=== PATIENT | male | born 1990 | race American Indian/Alaskan Native ===

== ENCOUNTER 2019-01-11 09:21 | Observation (INO) | payer OTHER ==
[2019-01-11 10:20] LABS: Hematocrit TNR % (35.5-45.6); Hemoglobin TNR gm/dl (11.8-15.2); Lymphocytes % (Auto) TNR % (13.4-35.0); Mean Corpuscular HGB Conc TNR % (32-34); Mean Corpuscular Volume TNR fl (84-94); Monocytes % (Auto) TNR % (0.0-7.3); Platelet Count TNR K/mm3 (140-440); Red Blood Count TNR M/mm3 (3.65-5.03); Red Cell Distribution Width TNR % (13.2-15.2)
[2019-01-11] MEDS ORDERED: HALDOL ONE (10:20)
[2019-01-11 10:21] LABS: Basophils # (Auto) TNR K/mm3 (0.0-0.1); Basophils % (Auto) TNR % (0.0-1.8); Eosinophils # (Auto) TNR K/mm3 (0.0-0.4); Eosinophils % (Auto) TNR % (0.0-4.3); Lymphocytes # (Auto) TNR K/mm3 (1.2-5.4); Monocytes # (Auto) TNR K/mm3 (0.0-0.8)
[2019-01-11 10:25] LABS: BUN/Creatinine Ratio 17; Blood Urea Nitrogen 20 mg/dL (9-20); Calcium 9.6 mg/dL (8.4-10.2); Hemolysis Index 15
[2019-01-11] MEDS ORDERED: NACL 0.9% 1000 ML 1,000 ML IV ONE (10:35)
[2019-01-11] MEDS ORDERED: ZOFRAN IV ONE (10:35)
[2019-01-11] MEDS ORDERED: DILAUDID IV ONE (10:36)
[2019-01-11] MEDS ORDERED: PROTONIX IV ONE (10:36)
[2019-01-11] MEDS ORDERED: HALDOL IM STA (10:36)
[2019-01-11] MEDS ORDERED: HALDOL IM ONE (10:37)
--- NOTE | 2019-01-11 10:38 | Emergency Department Report ---
ED General Adult HPI - General Chief complaint: GI Bleed Stated complaint: VOMITING Time Seen by Provider: 01/11/19 10:25 Source: patient, RN notes reviewed Mode of arrival: Stretcher Limitations: Physical Limitation - History of Present Illness Initial comments: This is a 28-year-old gentleman who is not known to this provider previously. The patient reports that he does not have a local primary care doctor, and he denies chronic medical conditions. Patient presents to the emergency room today with complaints of diffuse abdominal cramping and unopposed nausea and vomiting. Symptoms present 48 hours. They're constant. They were decreased in the emergency room with haloperidol, and hydromorphone. Patient reports no change with hot baths or hot showers. Patient reports that initial emesis was clear, yellow, then became bloody, then became coffee grounds. The patient denies a history of black, tarry stools. He denies testicular pain and urinary symptoms. -: Gradual, days(s) Radiation: abdomen Severity scale (0 -10): 10 Quality: aching Consistency: constant Improves with: medication Worsens with: eating Associated Symptoms: loss of appetite, malaise, nausea/vomiting, weakness. denies: confusion, chest pain, cough, diaphoresis, fever/chills, headaches, shortness of breath, syncope - Related Data Previous Rx's Medication Instructions Recorded Last Taken Type Ondansetron [Zofran Odt] 4 mg PO Q8HR #30 tab.rapdis 01/12/19 Unknown Rx Pantoprazole [Protonix TAB] 40 mg PO QDAY #30 tablet 01/12/19 Unknown Rx Allergies Allergy/AdvReac Type Severity Reaction Status Date / Time No Known Allergies Allergy Verified 01/11/19 10:26 ED Review of Systems ROS: Stated complaint: VOMITING Other details as noted in HPI Constitutional: malaise, weakness Eyes: denies: vision change ENT: denies: epistaxis Respiratory: denies: cough Cardiovascular: denies: chest pain Gastrointestinal: abdominal pain, nausea, vomiting, hematemesis. denies: melena, hematochezia Genitourinary: denies: urgency Musculoskeletal: arthralgia, myalgia Skin: denies: lesions Neurological: weakness Psychiatric: anxiety ED Past Medical Hx - Past Medical History Previous Medical History?: No - Surgical History Past Surgical History?: No - Social History Smoking Status: Current Every Day Smoker Substance Use Type: Alcohol, Marijuana - Medications Home Medications: Home Medications Medication Instructions Recorded Confirmed Last Taken Type Ondansetron [Zofran Odt] 4 mg PO Q8HR #30 tab.rapdis 01/12/19 Unknown Rx Pantoprazole [Protonix TAB] 40 mg PO QDAY #30 tablet 01/12/19 Unknown Rx ED Physical Exam - General Limitations: No Limitations General appearance: alert, anxious, in distress, other (patient actively vomiting and retching) - Head Head exam: Present: atraumatic, normocephalic - Eye Eye exam: Present: normal appearance - ENT ENT exam: Present: normal exam, normal orophraynx, mucous membranes moist, norm al external ear exam - Neck Neck exam: Present: normal inspection, full ROM. Absent: tenderness, meningismus - Respiratory Respiratory exam: Present: normal lung sounds bilaterally. Absent: respiratory distress - Cardiovascular Cardiovascular Exam: Present: normal rhythm, bradycardia, normal heart sounds. Absent: tachycardia, irregular rhythm, systolic murmur, diastolic murmur, rubs, gallop - GI/Abdominal GI/Abdominal exam: Present: soft. Absent: distended, tenderness, guarding, rebound, rigid, pulsatile mass - Rectal Rectal exam: Present: deferred - Extremities Exam Extremities exam: Present: normal inspection, full ROM, other (2+ pulses noted in the bilateral upper, lower extremities. Compartments soft. No long bony tenderness. The pelvis is stable.). Absent: pedal edema, joint swelling, calf tenderness - Back Exam Back exam: Present: normal inspection, full ROM. Absent: tenderness, CVA tenderness (R), paraspinal tenderness, vertebral tenderness - Neurological Exam Neurological exam: Present: alert, other (moving 4 extremities spontaneously. There is no facial droop. Speaking in full sentences. Sensation intact to light touch in 4 extremities.). Absent: motor sensory deficit - Psychiatric Psychiatric exam: Present: normal affect, normal mood - Skin Skin exam: Present: warm, dry, intact, normal color. Absent: rash ED Course Vital Signs 01/11/19 01/11/19 01/11/19 09:29 09:32 09:40 Temperature 97.9 F Pulse Rate 53 L Respiratory 20 Rate Blood Pressure Blood Pressure 131/78 [Right] O2 Sat by Pulse 98 100 Oximetry 01/11/19 01/11/19 01/11/19 09:46 10:00 10:16 Temperature Pulse Rate Respiratory Rate Blood Pressure 129/83 120/58 Blood Pressure [Right] O2 Sat by Pulse 99 83 L 98 Oximetry 01/11/19 01/11/19 01/11/19 10:30 10:46 11:00 Temperature Pulse Rate Respiratory Rate Blood Pressure 120/58 120/58 101/40 Blood Pressure [Right] O2 Sat by Pulse 98 76 L 82 L Oximetry 01/11/19 01/11/19 01/11/19 11:16 11:24 11:30 Temperature Pulse Rate Respiratory Rate Blood Pressure 120/58 120/58 120/58 Blood Pressure [Right] O2 Sat by Pulse 93 94 95 Oximetry 01/11/19 01/11/19 01/11/19 11:40 11:50 12:00 Temperature Pulse Rate Respiratory Rate Blood Pressure 120/58 120/58 104/57 Blood Pressure [Right] O2 Sat by Pulse 96 96 93 Oximetry 01/11/19 01/11/19 01/11/19 12:10 12:20 12:30 Temperature Pulse Rate Respiratory Rate Blood Pressure 104/57 104/57 104/57 Blood Pressure [Right] O2 Sat by Pulse 97 97 96 Oximetry 01/11/19 01/11/19 01/11/19 12:40 12:50 13:00 Temperature Pulse Rate Respiratory Rate Blood Pressure 104/57 104/57 107/60 Blood Pressure [Right] O2 Sat by Pulse 97 97 94 Oximetry 01/11/19 01/11/19 01/11/19 13:10 13:20 13:30 Temperature Pulse Rate Respiratory Rate Blood Pressure 107/60 107/60 107/60 Blood Pressure [Right] O2 Sat by Pulse 97 98 96 Oximetry 01/11/19 01/11/19 01/11/19 13:40 13:50 14:00 Temperature Pulse Rate Respiratory Rate Blood Pressure 107/60 107/60 115/69 Blood Pressure [Right] O2 Sat by Pulse 97 96 94 Oximetry 01/11/19 01/11/19 01/11/19 14:10 14:20 14:30 Temperature Pulse Rate Respiratory Rate Blood Pressure 115/69 115/69 115/69 Blood Pressure [Right] O2 Sat by Pulse 94 98 97 Oximetry 01/11/19 01/11/19 01/11/19 14:40 14:57 15:00 Temperature Pulse Rate Respiratory Rate Blood Pressure 115/69 Blood Pressure [Right] O2 Sat by Pulse 96 96 95 Oximetry 01/11/19 01/11/19 01/11/19 15:10 15:20 15:32 Temperature Pulse Rate Respiratory Rate Blood Pressure Blood Pressure [Right] O2 Sat by Pulse 95 96 97 Oximetry 01/11/19 01/11/19 01/11/19 15:40 15:50 16:02 Temperature Pulse Rate Respiratory Rate Blood Pressure Blood Pressure [Right] O2 Sat by Pulse 96 97 94 Oximetry 01/11/19 01/11/19 01/11/19 16:10 16:20 16:30 Temperature Pulse Rate Respiratory Rate Blood Pressure Blood Pressure [Right] O2 Sat by Pulse 93 93 92 Oximetry - Reevaluation(s) Reevaluation #1: 01/11/19 12:40 Differential diagnosis, including but not limited to: Cyclic vomiting syndrome, narcotic bowel syndrome, cannabinoid hyperemesis syndrome, GERD, gastritis, hiatal hernia, Huong-Dill tear Assessment and plan: 28-year-old gentleman who is clinically sober at this time, with unopposed nausea and vomiting, no admission of cannabis consumption to this provider, but has admitted to another provider that he does consume daily cannabis. I have a very high suspicion for cannabinoid hyperemesis syndrome. We will treat with Haldol, Zofran, hydromorphone, Protonix, IV fluids, obtain GI consultation, and CT scan of the abdomen and pelvis. Patient resting comfortably, and stretcher, in no acute distress at this time. Discussed with gastroenterology on-call, Erika Scott, who has already seen and evaluated the patient. We will reassess after her CT scan has resulted. Reevaluation #2: 01/11/19 15:16 ct abdomen pelvis negative for acute disease no active vomiting heavily suspect cannabinoid hyperemesis syndrome. Hospital physician is paged to arrange admission. Reevaluation #3: 01/11/19 15:25 Dr Higinio Aguilar to admit ED Medical Decision Making - Lab Data Result diagrams: 01/12/19 05:03 01/12/19 05:03 Vital Signs 01/11/19 01/11/19 01/11/19 09:29 09:32 09:40 Temperature 97.9 F Pulse Rate 53 L Respiratory 20 Rate Blood Pressure Blood Pressure 131/78 [Right] O2 Sat by Pulse 98 100 Oximetry 01/11/19 01/11/19 01/11/19 09:46 10:00 10:16 Temperature Pulse Rate Respiratory Rate Blood Pressure 129/83 120/58 Blood Pressure [Right] O2 Sat by Pulse 99 83 L 98 Oximetry 01/11/19 01/11/19 01/11/19 10:30 10:46 11:00 Temperature Pulse Rate Respiratory Rate Blood Pressure 120/58 120/58 101/40 Blood Pressure [Right] O2 Sat by Pulse 98 76 L 82 L Oximetry 01/11/19 11:16 Temperature Pulse Rate Respiratory Rate Blood Pressure 120/58 Blood Pressure [Right] O2 Sat by Pulse 93 Oximetry Lab Results 01/11/19 01/11/19 01/11/19 Range/Units 09:54 09:54 09:54 WBC TNR RBC TNR Hgb TNR Hct TNR MCV TNR MCH TNR MCHC TNR RDW TNR Plt Count TNR Lymph % (Auto) TNR [place] % (Auto) TNR Eos % (Auto) TNR Baso % (Auto) TNR Lymph # TNR [place] # TNR Eos # TNR Baso # TNR Seg Neutrophils % TNR Seg Neutrophils # TNR PT 12.3 (12.2-14.9) Sec. INR 0.87 (0.87-1.13) APTT (24.2-36.6) Sec. Sodium 137 (137-145) mmol/L Potassium 3.7 (3.6-5.0) mmol/L Chloride 99.1 (98-107) mmol/L Carbon Dioxide 22 (22-30) mmol/L Anion Gap 20 mmol/L BUN 20 (9-20) mg/dL Creatinine 1.2 (0.8-1.5) mg/dL Estimated GFR > 60 ml/min BUN/Creatinine Ratio 17 % Glucose 121 H (75-100) mg/dL Lactic Acid (0.7-2.0) mmol/L Calcium 9.6 (8.4-10.2) mg/dL Magnesium (1.7-2.3) mg/dL Lipase (13-60) units/L Blood Type Antibody Screen 01/11/19 01/11/19 01/11/19 Range/Units 09:54 10:39 10:39 WBC 8.1 RBC 5.36 H Hgb 14.6 Hct 42.6 MCV 80 L MCH 27 L MCHC 34 RDW 13.5 Plt Count 309 Lymph % (Auto) 14.5 [place] % (Auto) 5.8 Eos % (Auto) 0.3 Baso % (Auto) 0.4 Lymph # 1.2 [place] # 0.5 Eos # 0.0 Baso # 0.0 Seg Neutrophils % 79.0 H Seg Neutrophils # 6.4 PT (12.2-14.9) Sec. INR (0.87-1.13) APTT (24.2-36.6) Sec. Sodium (137-145) mmol/L Potassium (3.6-5.0) mmol/L Chloride (98-107) mmol/L Carbon Dioxide (22-30) mmol/L Anion Gap mmol/L BUN (9-20) mg/dL Creatinine (0.8-1.5) mg/dL Estimated GFR ml/min BUN/Creatinine Ratio % Glucose (75-100) mg/dL Lactic Acid 2.60 H* (0.7-2.0) mmol/L Calcium (8.4-10.2) mg/dL Magnesium 1.80 (1.7-2.3) mg/dL Lipase 45 (13-60) units/L Blood Type Antibody Screen 01/11/19 Range/Units 10:39 WBC RBC Hgb Hct MCV MCH MCHC RDW Plt Count Lymph % (Auto) [place] % (Auto) Eos % (Auto) Baso % (Auto) Lymph # [place] # Eos # Baso # Seg Neutrophils % Seg Neutrophils # PT (12.2-14.9) Sec. INR (0.87-1.13) APTT (24.2-36.6) Sec. Sodium (137-145) mmol/L Potassium (3.6-5.0) mmol/L Chloride (98-107) mmol/L Carbon Dioxide (22-30) mmol/L Anion Gap mmol/L BUN (9-20) mg/dL Creatinine (0.8-1.5) mg/dL Estimated GFR ml/min BUN/Creatinine Ratio % Glucose (75-100) mg/dL Lactic Acid (0.7-2.0) mmol/L Calcium (8.4-10.2) mg/dL Magnesium (1.7-2.3) mg/dL Lipase (13-60) units/L Blood Type O POSITIVE Antibody Screen Negative - EKG Data -: EKG Interpreted by Me EKG shows normal: sinus rhythm Rate: bradycardia - EKG Data When compared to previous EKG there are: previous EKG unavailable 01/11/19 12:39 Bradycardic rhythm, sinus, 56 bpm, normal axis, normal intervals, not consistent with ST elevation myocardial infarction. - Radiology Data Radiology results: pending, report reviewed, image reviewed X-ray of the chest is negative for acute disease Critical care attestation.: If time is entered above; I have spent that time in minutes in the direct care of this critically ill patient, excluding procedure time. ED Disposition Clinical Impression: Cannabinoid hyperemesis syndrome GI bleed Qualifiers: GI bleed type/associated pathology: unspecified gastrointestinal hemorrhage type Qualified Code(s): K92.2 - Gastrointestinal hemorrhage, unspecified Disposition: 09 OP ADMIT IP TO THIS HOSP Is pt being admited?: Yes Does the pt Need Aspirin: No Condition: Good
[2019-01-11 10:55] LABS: INR 0.87 (0.87-1.13)
[2019-01-11 11:06] LABS: Basophils % (Auto) 0.4 % (0.0-1.8); Eosinophils % (Auto) 0.3 % (0.0-4.3); Hematocrit 42.6 % (35.5-45.6); Hemoglobin 14.6 gm/dl (11.8-15.2); Lymphocytes # (Auto) 1.2 K/mm3 (1.2-5.4); Lymphocytes % (Auto) 14.5 % (13.4-35.0); Mean Corpuscular HGB Conc 34 % (32-34); Mean Corpuscular Volume 80 fl (84-94); Monocytes # (Auto) 0.5 K/mm3 (0.0-0.8); Monocytes % (Auto) 5.8 % (0.0-7.3); Platelet Count 309 K/mm3 (140-440); Red Blood Count 5.36 M/mm3 (3.65-5.03); Red Cell Distribution Width 13.5 % (13.2-15.2)
--- NOTE | 2019-01-11 12:02 | XRay Report ---
AP CHEST: HISTORY: Nausea and vomiting, GI bleed AP view of the chest demonstrates a normal mediastinal and cardiac contour with clear lungs and normal bony and soft tissue structures. IMPRESSION: Unremarkable AP chest.
--- NOTE | 2019-01-11 12:27 | Gastroenterology Consultation ---
History of Present Illness - Reason for Consult Consult date: 01/11/19 GI bleed Requesting physician: MARCO ANTONIO LEAHY - History of Present Illness Patient is a 28 y/o male with no significant PMH who presented to ED with c/o vomiting blood to which GI has been consulted. This morning patient was resting in bed w/o acute distress. He reports an acute onset of N/V yesterday with multiple episodes. Emesis was non-bloody initially, but became bloody this am x 1 episode with bright red blood mixed with black. Also had associated epigastric pain described as cramping which is now improving along with N/V. Denies fever, wt loss, CP, SOB, melena, hematochezia, diarrhea, or constipation. Has been evaluated in the past for previous episodes of N/V with an EGD which showed gastritis per pt report. No NSAIDs. No hx of PUD or liver disease. Drinks alcohol occasionally. Uses marijuana daily (possible etiology of N/V) but denies any other drug use. Past History Past Medical History: No medical history Past Surgical History: No surgical history Social history: smoking, other (Alcohol, Marijuana) Medications and Allergies Allergies Allergy/AdvReac Type Severity Reaction Status Date / Time No Known Allergies Allergy Verified 01/11/19 10:26 Active Meds: medications reviewed/updated as required Review of Systems - Review of Systems All systems: negative Gastrointestinal: abdominal pain, nausea, vomiting, hematemesis Exam - Constitutional Vital Signs: Temp Pulse Resp BP Pulse Ox 97.9 F 53 L 20 120/58 93 01/11/19 09:29 01/11/19 09:29 01/11/19 09:29 01/11/19 11:16 01/11/19 11:16 General appearance: no acute distress - Respiratory Respiratory: bilateral: CTA - Cardiovascular Rhythm: regular Heart Sounds: Present: S1 & S2 - Gastrointestinal General gastrointestinal: Present: soft, non-tender, non-distended, normal bowel sounds - Labs CBC & Chem 7: 01/11/19 10:39 01/11/19 09:54 Lab Results: Laboratory Results - last 24 hr 01/11/19 01/11/19 01/11/19 09:54 09:54 09:54 WBC TNR RBC TNR Hgb TNR Hct TNR MCV TNR MCH TNR MCHC TNR RDW TNR Plt Count TNR Lymph % (Auto) TNR [place] % (Auto) TNR Eos % (Auto) TNR Baso % (Auto) TNR Lymph # TNR [place] # TNR Eos # TNR Baso # TNR Seg Neutrophils % TNR Seg Neutrophils # TNR PT 12.3 INR 0.87 APTT Sodium 137 Potassium 3.7 Chloride 99.1 Carbon Dioxide 22 Anion Gap 20 BUN 20 Creatinine 1.2 Estimated GFR > 60 BUN/Creatinine Ratio 17 Glucose 121 H Lactic Acid Calcium 9.6 Magnesium Lipase Blood Type Antibody Screen 01/11/19 01/11/19 01/11/19 09:54 10:39 10:39 WBC 8.1 RBC 5.36 H Hgb 14.6 Hct 42.6 MCV 80 L MCH 27 L MCHC 34 RDW 13.5 Plt Count 309 Lymph % (Auto) 14.5 [place] % (Auto) 5.8 Eos % (Auto) 0.3 Baso % (Auto) 0.4 Lymph # 1.2 [place] # 0.5 Eos # 0.0 Baso # 0.0 Seg Neutrophils % 79.0 H Seg Neutrophils # 6.4 PT INR APTT Sodium Potassium Chloride Carbon Dioxide Anion Gap BUN Creatinine Estimated GFR BUN/Creatinine Ratio Glucose Lactic Acid 2.60 H* Calcium Magnesium 1.80 Lipase 45 Blood Type Antibody Screen 01/11/19 10:39 WBC RBC Hgb Hct MCV MCH MCHC RDW Plt Count Lymph % (Auto) [place] % (Auto) Eos % (Auto) Baso % (Auto) Lymph # [place] # Eos # Baso # Seg Neutrophils % Seg Neutrophils # PT INR APTT Sodium Potassium Chloride Carbon Dioxide Anion Gap BUN Creatinine Estimated GFR BUN/Creatinine Ratio Glucose Lactic Acid Calcium Magnesium Lipase Blood Type O POSITIVE Antibody Screen Negative Assessment and Plan 1.GI bleed/hematemesis -INR 0.86 -BUN 20 -H/H WNL (14.6/42.6) -continue to monitor H/H and transfuse as needed -hold blood thinning medications -currently HD stable -patient reports multiple episodes of N/V since yesterday with emesis initially non-bloody, but became bloody (bright red blood mixed with black) this am x 1 episode. No melena or hematochezia. Abd cramping now improved along with N/V. -etiology-likely 2/2 M-W tear vs esophagitis vs other -will schedule for EGD tomorrow -okay for clear liquids today as tolerated, then NPO after MN -continue PPI -continue supportive care -will follow
--- NOTE | 2019-01-11 15:06 | Cat Scan Report ---
CT ABDOMEN PELVIS WITH CONTRAST: HISTORY: Abdominal pain, nausea and vomiting. COMPARISON: none. TECHNIQUE: Helical CT in 1.25mm intervals following IV contrast. Sagittal and coronal reconstructions. FINDINGS: Lung bases: Normal. Liver: The liver is normal size and contour. There are a few scattered liver hypodensities measuring up to 1 cm which appear to represent cysts or hemangiomas. No suspicious liver mass or parenchymal liver disease. Biliary system: Normal. Pancreas: Normal. Spleen: Normal. Kidneys/ureters/bladder: Normal. Adrenal glands: Normal. Aorta: Normal. Intestines: Normal. Appendix: Normal. Pelvic viscera: Normal. Ascites: Is. Adenopathy: None. Musculoskeletal: The bony structures are intact. Small umbilical hernia containing fat is noted. IMPRESSION: No acute process is identified in the abdomen or pelvis. Few scattered liver cysts/hemangiomas. Small umbilical hernia containing fat.
[2019-01-11] MEDS: PROTONIX IV SCH (22:06)
--- NOTE | 2019-01-12 00:59 | History and Physical Report ---
History of Present Illness Date of examination: 01/11/19 Date of admission: 01/11/19 15:25 Chief complaint: [place] emesis since last night History of present illness: 28-year-old AAM with no significant past medical history comes in for vomiting of 2 days duration.Vomiting started on Wednesday01/09/19 and he went to [facility].He waited for 6 hours and was not seen-got frustrated and left the facility without being seen.He threw up about 15 to 20 times in the last 36 hours.Since last night it became coffee ground emesis.Patient also has diffuse abdominal pain-- cramping in nature.Patient attributes vomiting to THC intake.Patient has been trying to reduce THC intake.No cocaine or alcohol. Nofever or chills.No Lightheadedness or syncope. Past Medical History Previous Medical History?: No Surgical History Past Surgical History?: No Social History Smoking Status: Current Every Day Smoker Substance Use Type: Alcohol, Marijuana Family history Htn Review of systems ROS: Stated complaint: VOMITING Other details as noted in HPI Constitutional: malaise, weakness Eyes: denies: vision change ENT: denies: epistaxis Respiratory: denies: cough Cardiovascular: denies: chest pain Gastrointestinal: abdominal pain, nausea, vomiting, hematemesis. denies: melena, hematochezia Genitourinary: denies: urgency Musculoskeletal: arthralgia, myalgia Skin: denies: lesions Neurological: weakness Psychiatric: anxiety Past History Past Medical History: No medical history Past Surgical History: No surgical history Social history: smoking, other (Alcohol, Marijuana) Medications and Allergies Allergies Allergy/AdvReac Type Severity Reaction Status Date / Time No Known Allergies Allergy Verified 01/11/19 10:26 Home Medications Medication Instructions Recorded Confirmed Last Taken Type No Known Home Medications [No 01/11/19 01/11/19 Unknown History Reported Home Medications] Active Meds: Active Medications Pantoprazole Sodium (Protonix) 40 mg IV BID JAZMIN Last Admin: 01/11/19 22:06 Dose: 40 mg Documented by: Exam - Constitutional Vitals: Temp Pulse Resp BP Pulse Ox 98.1 F 70 17 112/84 98 01/11/19 23:48 01/11/19 23:48 01/11/19 23:48 01/11/19 23:48 01/11/19 23:48 General appearance: Present: mild distress - EENT Eyes: Present: PERRL, EOM intact ENT: hearing intact, clear oral mucosa - Neck Neck: Present: supple, normal ROM - Respiratory Respiratory effort: normal - Cardiovascular Heart rate: 88 Rhythm: regular Heart Sounds: Present: S1 & S2 - Extremities Extremities: no ischemia Peripheral Pulses: within normal limits - Abdominal General gastrointestinal: Present: soft, tender Localized gastrointestinal: tender: epigastric periumbilical Male genitourinary: Present: deferred - Rectal Rectal Exam: other (OB positive) - Integumentary Integumentary: Present: clear, warm, dry - Musculoskeletal Musculoskeletal: strength equal bilaterally - Psychiatric Psychiatric: appropriate mood/affect, intact judgment & insight, memory intact, cooperative - Allied Health Allied health notes reviewed: nursing, case management Results - Labs CBC & Chem 7: 01/11/19 10:39 01/11/19 09:54 Labs: Laboratory Last Values WBC 8.1 K/mm3 (4.5-11.0) 01/11/19 10:39 RBC 5.36 M/mm3 (3.65-5.03) H 01/11/19 10:39 Hgb 14.6 gm/dl (11.8-15.2) 01/11/19 10:39 Hct 42.6 % (35.5-45.6) 01/11/19 10:39 MCV 80 fl (84-94) L 01/11/19 10:39 MCH 27 pg (28-32) L 01/11/19 10:39 MCHC 34 % (32-34) 01/11/19 10:39 RDW 13.5 % (13.2-15.2) 01/11/19 10:39 Plt Count 309 K/mm3 (140-440) 01/11/19 10:39 Lymph % (Auto) 14.5 % (13.4-35.0) 01/11/19 10:39 [place] % (Auto) 5.8 % (0.0-7.3) 01/11/19 10:39 Eos % (Auto) 0.3 % (0.0-4.3) 01/11/19 10:39 Baso % (Auto) 0.4 % (0.0-1.8) 01/11/19 10:39 Lymph # 1.2 K/mm3 (1.2-5.4) 01/11/19 10:39 [place] # 0.5 K/mm3 (0.0-0.8) 01/11/19 10:39 Eos # 0.0 K/mm3 (0.0-0.4) 01/11/19 10:39 Baso # 0.0 K/mm3 (0.0-0.1) 01/11/19 10:39 Seg Neutrophils % 79.0 % (40.0-70.0) H 01/11/19 10:39 Seg Neutrophils # 6.4 K/mm3 (1.8-7.7) 01/11/19 10:39 PT 12.3 Sec. (12.2-14.9) 01/11/19 09:54 INR 0.87 (0.87-1.13) 01/11/19 09:54 APTT Sec. (24.2-36.6) 01/11/19 09:54 Sodium 137 mmol/L (137-145) 01/11/19 09:54 Potassium 3.7 mmol/L (3.6-5.0) 01/11/19 09:54 Chloride 99.1 mmol/L (98-107) 01/11/19 09:54 Carbon Dioxide 22 mmol/L (22-30) 01/11/19 09:54 Anion Gap 20 mmol/L 01/11/19 09:54 BUN 20 mg/dL (9-20) 01/11/19 09:54 Creatinine 1.2 mg/dL (0.8-1.5) 01/11/19 09:54 Estimated GFR > 60 ml/min 01/11/19 09:54 BUN/Creatinine Ratio 17 % 01/11/19 09:54 Glucose 121 mg/dL (75-100) H 01/11/19 09:54 Lactic Acid 0.90 mmol/L (0.7-2.0) 01/11/19 14:01 Calcium 9.6 mg/dL (8.4-10.2) 01/11/19 09:54 Magnesium 1.80 mg/dL (1.7-2.3) 01/11/19 09:54 Lipase 45 units/L (13-60) 01/11/19 09:54 Blood Type O POSITIVE 01/11/19 10:39 Antibody Screen Negative 01/11/19 10:39 Short CBC 01/11/19 01/11/19 Range/Units 09:54 10:39 WBC TNR 8.1 Hgb TNR 14.6 Hct TNR 42.6 Plt Count TNR 309 BMP 01/11/19 09:54 Sodium 137 Potassium 3.7 Chloride 99.1 Carbon Dioxide 22 BUN 20 Creatinine 1.2 Glucose 121 H Calcium 9.6 - Imaging and Cardiology EKG: report reviewed (Sinus bradycardia HR of 56) Chest x-ray: report reviewed (NAF) CT scan - abdomen: report reviewed (NAF) Assessment and Plan Advance Directives: Yes (Full code) VTE prophylaxis?: Mechanical Plan of care discussed with patient/family: Yes - Patient Problems (1) Upper GI bleed Current Visit: Yes Status: Acute Plan to address problem: Probably MW tear from retching IV Protonix and IV Fluids H and H every 6 to 8 hours GI consult for possible Endoscopy -EGD Transfuse if necessary (2) Cannabinoid hyperemesis syndrome Current Visit: Yes Status: Acute Plan to address problem: IV Zofran and IV reglan as necessary (3) Tetrahydrocannabinol (THC) use disorder, moderate, dependence Current Visit: Yes Status: Chronic Plan to address problem: Patient counselled (4) Elevated lactic acid level Current Visit: Yes Status: Acute Plan to address problem: No signs of sepsis.,secindary to vimiting. (5) DVT prophylaxis Current Visit: Yes Status: Acute Plan to address problem: On SCD's and IV Protonix
[2019-01-12] MEDS ORDERED: SODIUM CHLORIDE FLUSH SYRINGE 10 ML IV PRN (01:00)
[2019-01-12] MEDS ORDERED: DILAUDID IV PRN (01:00)
[2019-01-12] MEDS ORDERED: ZOFRAN IV PRN (01:00)
[2019-01-12] MEDS ORDERED: NACL 0.9% 1000 ML 1,000 ML IV SCH (01:00)
[2019-01-12] MEDS ORDERED: TYLENOL PO PRN (01:00)
[2019-01-12 02:12] LABS: Hematocrit 41.8 % (35.5-45.6); Hemoglobin 13.8 gm/dl (11.8-15.2)
[2019-01-12 05:37] LABS: Basophils % (Auto) 0.5 % (0.0-1.8); Eosinophils % (Auto) 0.5 % (0.0-4.3); Hematocrit 41.6 % (35.5-45.6); Hemoglobin 13.8 gm/dl (11.8-15.2); Lymphocytes % (Auto) 36.5 % (13.4-35.0); Mean Corpuscular HGB Conc 33 % (32-34); Mean Corpuscular Volume 81 fl (84-94); Monocytes # (Auto) 0.6 K/mm3 (0.0-0.8); Monocytes % (Auto) 11.5 % (0.0-7.3); Platelet Count 282 K/mm3 (140-440); Red Blood Count 5.15 M/mm3 (3.65-5.03); Red Cell Distribution Width 13.9 % (13.2-15.2)
[2019-01-12 06:02] LABS: BUN/Creatinine Ratio 11; Blood Urea Nitrogen 13 mg/dL (9-20); Calcium 8.5 mg/dL (8.4-10.2); Hemolysis Index 2
[2019-01-12 06:46] VITALS: BP 114/58
[2019-01-12] MEDS: SODIUM CHLORIDE FLUSH SYRINGE 10 ML IV SCH ×2 (07:34→10:13)
[2019-01-12] MEDS: PROTONIX IV SCH (10:12)
--- NOTE | 2019-01-12 11:08 | Discharge Summary ---
Providers - Providers Date of Admission: 01/11/19 15:25 Attending physician: CARMINE MA MD 01/11/19 10:36 Consult to Physician [CONS] Urgent Comment: Consulting Provider: GRAEME MAC Physician Instructions: Reason For Exam: gi bleed [facility] Reason for admission: gi BLEED Condition: Good Hospital course: 28-year-old AAM with no significant past medical history comes in for vomiting of 2 days duration.Vomiting started on Wednesday01/09/19 and he went to [facility].He waited for 6 hours and was not seen-got frustrated and left the facility without being seen.He threw up about 15 to 20 times in the last 36 hours.Since last night it became coffee ground emesis.Patient also has diffuse abdominal pain-- cramping in nature.Patient attributes vomiting to THC intake.Patient has been trying to reduce THC intake.No cocaine or alcohol. No fever or chills. No Lightheadedness or syncope. In the morning when i arrived to evaluate the patient, he reported that he was 100% better, he proceeded to inform myself and the decision support manager that he is relocating to [place] and has a very important meeting he cannot afford to miss today and there fore will sign out AMA. I discussed the severity of his illness, the potential that he has a GI bleed and the risk of as a result. He verbalized understanding and being aleart oriented x3 made a conscious decision to sign out against medical advise. Disposition: DC-07 LEFT AGAINST MED ADVICE Time spent for discharge: 55 mins Core Measure Documentation - Palliative Care Palliative Care/ Comfort Measures: Not Applicable - Core Measures Any of the following diagnoses?: none Exam - Constitutional Vitals: Temp Pulse Resp BP Pulse Ox 97.8 F 59 L 16 114/58 99 01/12/19 05:20 01/12/19 05:20 01/12/19 05:20 01/12/19 05:20 01/12/19 05:20 General appearance: Present: no acute distress, well-nourished - EENT Eyes: Present: PERRL, EOM intact ENT: hearing intact, clear oral mucosa - Neck Neck: Present: supple, normal ROM - Respiratory Respiratory effort: normal Respiratory: bilateral: CTA - Cardiovascular Rhythm: regular Heart Sounds: Present: S1 & S2. Absent: systolic murmur, diastolic murmur - Extremities Extremities: no ischemia, pulses intact, pulses symmetrical, No edema, normal temperature, normal color, Full ROM Peripheral Pulses: within normal limits - Abdominal General gastrointestinal: Present: soft, non-tender, non-distended, normal bowel sounds - Integumentary Integumentary: Present: clear, warm, dry, normal turgor. Absent: erythema, jaundice, rash, clammy, pale - Musculoskeletal Musculoskeletal: strength equal bilaterally - Psychiatric Psychiatric: appropriate mood/affect, intact judgment & insight, cooperative - Neurologic Neurologic: CNII-XII intact, moves all extremities - Allied Health Allied health notes reviewed: nursing Plan Special Instructions: smoking cessation (must quit THC) Follow up with: LASHANDA MCCONNELL MD [Primary Care Provider] - 3-5 Days ALEE KUMAR MD [Staff Physician] - 7 Days Forms: Accompanied Note Prescriptions: Pantoprazole [Protonix TAB] 40 mg PO QDAY #30 tablet Ondansetron [Zofran Odt] 4 mg PO Q8HR #30 tab.cyndi
--- NOTE | 2019-01-12 20:30 | Event Note ---
Date: 01/12/19 - pt for EGD today - pt elects to signs out before procedure - can schedule follow up and further workup as outpt
== END 2019-01-12 11:25 | disposition left against medical advice (07) ==
LOC: ED 09:21 → 3A 15:25
PROVIDERS: ADMIT Internal Medicine; ATTEND Internal Medicine
DX: K92.2 Gastrointestinal hemorrhage, unspecified (principal); F12.188 Cannabis abuse with other cannabis-induced disorder; R11.10 Vomiting, unspecified; R74.0 Nonspecific elevation of levels of transaminase and lactic acid dehydrogenase [LDH]; F17.200 Nicotine dependence, unspecified, uncomplicated
CPT/HCPCS: 36415; 71045; 74177; 80048; 82140; 83690; 83735; 85014; 85018; 85025; 85610; 85730; 86850; 86900; 86901; 93005; 93010; 96361; 96372; 96374; 96375; 96376; 99284; C9113; G0378; J1170; J1630; J2405; J7030; Q9967

== ENCOUNTER 2019-06-05 07:41 | Emergency (ER) | payer OTHER ==
[2019-06-05] MEDS ORDERED: ZOFRAN ODT PO ONE (07:54)
[2019-06-05] MEDS ORDERED: ZOFRAN ODT ONE (07:56)
[2019-06-05] MEDS ORDERED: BENADRYL IV ONE (08:26)
[2019-06-05] MEDS ORDERED: ZOFRAN IV ONE (08:26)
[2019-06-05] MEDS ORDERED: REGLAN IV ONE (08:26)
--- NOTE | 2019-06-05 08:29 | Emergency Department Report ---
ED General Adult HPI - General Chief complaint: Nausea/Vomiting/Diarrhea Stated complaint: N/V/ABD PAIN/HEADACHES Time Seen by Provider: 06/05/19 08:13 Source: patient Mode of arrival: Ambulatory Limitations: No Limitations - History of Present Illness Initial comments: Patient presents to the emergency department with chief complaint of nausea and vomiting that started this morning. Patient states he has a history of vomiting. Patient states that he is having some abdominal cramping but denies any dennis pain. Patient denies chest pain, shortness breath, headache. -: Sudden Radiation: abdomen Severity scale (0 -10): 2 Quality: other (cramping) Consistency: constant Improves with: none Worsens with: none Associated Symptoms: denies other symptoms Treatments Prior to Arrival: none - Related Data Previous Rx's Medication Instructions Recorded Last Taken Type Ondansetron [Zofran Odt] 4 mg PO Q8HR #30 tab.rapdis 01/12/19 Unknown Rx Pantoprazole [Protonix TAB] 40 mg PO QDAY #30 tablet 01/12/19 Unknown Rx Ondansetron [Zofran Odt] 4 mg PO Q4HR PRN #20 tab.rapdis 06/05/19 Unknown Rx Promethazine [Phenergan TAB] 25 mg PO Q6HR PRN #20 tab 06/05/19 Unknown Rx Allergies Allergy/AdvReac Type Severity Reaction Status Date / Time No Known Allergies Allergy Verified 01/11/19 10:26 ED Review of Systems ROS: Stated complaint: N/V/ABD PAIN/HEADACHES Other details as noted in HPI Comment: All other systems reviewed and negative Constitutional: denies: chills, fever Eyes: denies: eye pain, eye discharge, vision change ENT: denies: ear pain, throat pain Respiratory: denies: cough, shortness of breath, wheezing Cardiovascular: denies: chest pain, palpitations Endocrine: no symptoms reported Gastrointestinal: nausea, vomiting. denies: abdominal pain, diarrhea Genitourinary: denies: urgency, dysuria Musculoskeletal: denies: back pain, joint swelling, arthralgia Skin: denies: rash, lesions Neurological: denies: headache, weakness, paresthesias Psychiatric: denies: anxiety, depression Hematological/Lymphatic: denies: easy bleeding, easy bruising ED Past Medical Hx - Past Medical History Previous Medical History?: Yes Hx HIV: No Additional medical history: gastroenteritis - Surgical History Past Surgical History?: No - Social History Smoking Status: Current Every Day Smoker Substance Use Type: Alcohol - Medications Home Medications: Home Medications Medication Instructions Recorded Confirmed Last Taken Type Ondansetron [Zofran Odt] 4 mg PO Q8HR #30 tab.rapdis 01/12/19 Unknown Rx Pantoprazole [Protonix TAB] 40 mg PO QDAY #30 tablet 01/12/19 Unknown Rx Ondansetron [Zofran Odt] 4 mg PO Q4HR PRN #20 tab.rapdis 06/05/19 Unknown Rx Promethazine [Phenergan TAB] 25 mg PO Q6HR PRN #20 tab 06/05/19 Unknown Rx ED Physical Exam - General Limitations: No Limitations General appearance: alert, in no apparent distress - Head Head exam: Present: atraumatic, normocephalic - Eye Eye exam: Present: normal appearance, PERRL, EOMI - ENT ENT exam: Present: mucous membranes moist - Neck Neck exam: Present: normal inspection - Respiratory Respiratory exam: Present: normal lung sounds bilaterally. Absent: respiratory distress - Cardiovascular Cardiovascular Exam: Present: regular rate, normal rhythm. Absent: systolic murmur, diastolic murmur, rubs, gallop - GI/Abdominal GI/Abdominal exam: Present: soft, normal bowel sounds. Absent: distended, tenderness - Rectal Rectal exam: Present: deferred - Extremities Exam Extremities exam: Present: normal inspection - Back Exam Back exam: Present: normal inspection - Neurological Exam Neurological exam: Present: alert, oriented X3, CN II-XII intact. Absent: motor sensory deficit - Psychiatric Psychiatric exam: Present: normal affect, normal mood - Skin Skin exam: Present: warm, dry, intact, normal color. Absent: rash ED Course Vital Signs 06/05/19 07:52 Temperature 97.6 F Pulse Rate 76 Respiratory 16 Rate Blood Pressure 116/72 O2 Sat by Pulse 100 Oximetry ED Medical Decision Making - Medical Decision Making Patient improved with [facility] Critical care attestation.: If time is entered above; I have spent that time in minutes in the direct care of this critically ill patient, excluding procedure time. ED Disposition Clinical Impression: Nausea & vomiting Disposition: DC-01 TO HOME OR SELFCARE Is pt being admited?: No Does the pt Need Aspirin: No Condition: Stable Instructions: Acute Nausea and Vomiting (ED) Additional Instructions: return if worse Prescriptions: Promethazine [Phenergan TAB] 25 mg PO Q6HR PRN #20 tab PRN Reason: Nausea Ondansetron [Zofran Odt] 4 mg PO Q4HR PRN #20 tab.rapdis PRN Reason: Nausea Referrals: CUONG MATTABOODY MD GINNY [Primary Care Provider] - 3-5 Days [facility] [Provider Group] - 3-5 Days [facility] [Provider Group] - 3-5 Days Time of Disposition: 09:06
[2019-06-05 09:20] VITALS: BP 118/72
== END 2019-06-05 09:19 | disposition home or self-care (01) ==
LOC: ED 07:41
DX: R11.2 Nausea with vomiting, unspecified (principal); F17.200 Nicotine dependence, unspecified, uncomplicated; Z79.899 Other long term (current) drug therapy
CPT/HCPCS: 96374; 96375; 99283; J1200; J2405; J2765; Q0162